=== PATIENT | male | born 1970 | race Caucasian/White ===

== ENCOUNTER 2021-12-19 12:26 | Emergency (ER) | payer OTHER ==
[2021-12-19 12:57] VITALS: BP 158/99; PULSE 65; RESP 20; TEMP 97.9
--- NOTE | 2021-12-19 13:25 | ED ---
Upper Extremity HPI - General Chief Complaint: Extremity Injury, Upper Stated Complaint: right shoulder injury at work Time Seen by Provider: 12/19/21 12:50 Source: patient, RN notes reviewed Mode of arrival: ambulatory Limitations: no limitations - History of Present Illness Initial Comments: 51-year-old male presents emergency Department chief complaint right shoulder pain. Patient states she was at work trying for some degenerative dumpster when he fell forward striking the edge of the dumpster across his chest, right shoulder and the right shoulder pain patient is right-hand dominant no prior surgery. No paresthesia. Patient states he has range of motion but is very painful. Patient denies any head injury no loss conscious - Related Data Allergies Allergy/AdvReac Type Severity Reaction Status Date / Time No Known Allergies Allergy Verified 12/19/21 12:57 Review of Systems ROS Statement: Those systems with pertinent positive or pertinent negative responses have been documented in the HPI. ROS Other: All systems not noted in ROS Statement are negative. Past Medical History Past Medical History: Hyperlipidemia, Hypertension Past Surgical History: No Surgical Hx Reported, Orthopedic Surgery Smoking Status: Never smoker Past Alcohol Use History: None Reported Past Drug Use History: None Reported General Exam Limitations: no limitations General appearance: alert, in no apparent distress Head exam: Present: atraumatic, normocephalic, normal inspection Eye exam: Present: normal appearance, PERRL, EOMI. Absent: scleral icterus, conjunctival injection, periorbital swelling Neck exam: Present: normal inspection, full ROM. Absent: tenderness, meningismus, lymphadenopathy Respiratory exam: Present: normal lung sounds bilaterally. Absent: respiratory distress, wheezes, rales, rhonchi, stridor Cardiovascular Exam: Present: regular rate, normal rhythm, normal heart sounds. Absent: systolic murmur, diastolic murmur, rubs, gallop, clicks GI/Abdominal exam: Present: soft, normal bowel sounds. Absent: distended, tenderness, guarding, rebound, rigid Extremities exam: Present: other (Right shoulder is anterior tenderness, no iris deformity, neurovascular intact, no tenderness of the clavicle posterior tenderness noted patient has limited range of motion secondary to pain. Strength is equal bilaterally) Neurological exam: Present: alert, oriented X3, reflexes normal. Absent: motor sensory deficit Course Vital Signs 12/19/21 12:53 Temperature 97.9 F Pulse Rate 65 Respiratory 20 Rate Blood Pressure 158/99 O2 Sat by Pulse 95 Oximetry Medical Decision Making - Medical Decision Making X-ray shows degenerative changes, no acute fracture. Patient was placed a sling for comfort care will follow-up with [facility] and return for any worsening changes symptoms. Disposition Clinical Impression: Right shoulder strain Disposition: HOME SELF-CARE Condition: Stable Instructions (If sedation given, give patient instructions): Shoulder Sprain (ED) Additional Instructions: Please return to the Emergency Department if symptoms worsen or any other concerns. Is patient prescribed a controlled substance at d/c from ED?: No Referrals: Esteban Friedman MD [Primary Care Provider] - 1-2 days Time of Disposition: 14:22
--- NOTE | 2021-12-19 13:42 | XR ---
EXAMINATION TYPE: XR shoulder complete RT DATE OF EXAM: 12/19/2021 1:37 PM INDICATION: Patient age:Male; 51 years old; Reason for study: pain, trauma; COMPARISON: None TECHNIQUE: The left shoulder was examined in AP, internally rotated and scapular Y projections. . FINDINGS: No evidence of acute osseous pathology, joint dislocation, or soft tissue swelling. The remaining por tions of the visualized chest are unremarkable. Mild osteophyte formation of the acromioclavicular joint. IMPRESSION: 1. No acute osseous pathology. 2. Mild AC joint osteophytosis.
== END 2021-12-19 14:45 | disposition home or self-care (01) ==
LOC: EC 12:26
DX: S46.911A Strain of unspecified muscle, fascia and tendon at shoulder and upper arm level, right arm, initial encounter (principal); I10 Essential (primary) hypertension; E78.5 Hyperlipidemia, unspecified; W18.09XA Striking against other object with subsequent fall, initial encounter; Y99.0 Civilian activity done for income or pay
CPT/HCPCS: 99283

== ENCOUNTER → 2022-01-25 | Outpatient (CLI) | payer OTHER ==
--- NOTE | 2022-01-26 03:19 | MR ---
EXAMINATION TYPE: MR shoulder RT wo con DATE OF EXAM: 01/25/2022 COMPARISON: None HISTORY: Right shoulder pain x6 weeks Multiplanar multi echo imaging of the right shoulder performed with no contrast There is some spurring at the AC joint. There is shoulder joint effusion. There is large rotator cuff tear with retraction of the supraspinatus tendon. There is subacromial subdeltoid effusion. The glenohumeral joint is anatomic. The biceps tendon is intact. The subscapularis tendon is intact g lenoid amparo appear intact. No fracture seen. The infraspinatus tendon appears intact. IMPRESSION: Large rotator cuff tear involving the supraspinatus tendon. Shoulder joint effusion and subdeltoid ef fusion.
== END | disposition home or self-care (01) ==
LOC: RADMRIMAIN 10:44
PROVIDERS: ATTEND Nurse Practitioner Family
DX: M75.101 Unspecified rotator cuff tear or rupture of right shoulder, not specified as traumatic (principal); M25.411 Effusion, right shoulder